=== PATIENT | female | born 1965 | race Caucasian/White ===

== ENCOUNTER 2022-01-01 16:45 | Emergency (ER) | payer OTHER ==
[2022-01-01 17:05] VITALS: BP 114/78; PULSE 68; TEMP 98.2; BMI 20.7
[2022-01-01] MEDS ORDERED: SODIUM CHLORIDE 0.9% 500 ML INFUS.BAG IV ONE (18:16)
[2022-01-01] MEDS ORDERED: ACETAMINOPHEN 1000 MG/100 ML BAG IVPB ONE (18:17)
[2022-01-01] MEDS ORDERED: METOCLOPRAMIDE HCL INJECTION 10 MG/2 ML VIAL IVPUSH ONE (18:18)
[2022-01-01] MEDS ORDERED: FAMOTIDINE 20 MG TABLET PO ONE (18:18)
[2022-01-01] MEDS ORDERED: ACETAMINOPHEN INJECTION 100 ML IVPB ONE (18:31)
[2022-01-01] MEDS ORDERED: METOCLOPRAMIDE HCL INJECTION 10 MG/2 ML VIAL ONE (18:31)
[2022-01-01] MEDS ORDERED: FAMOTIDINE 20 MG/50 ML IVPB 20 MG/50 ML MG IVPB ONE (18:32)
[2022-01-01] MEDS ORDERED: LIDOCAINE 5% TOPICAL PATCH TP ONE (18:35)
[2022-01-01] MEDS ORDERED: LIDOCAINE 5% TOPICAL PATCH ONE (18:52)
[2022-01-01] MEDS ORDERED: LIDOCAINE PATCH REMOVAL MC SCH (22:00)
== END 2022-01-01 21:59 | disposition home or self-care (01) ==
LOC: JER 16:45
PROC: 3E033GC Introduction of Other Therapeutic Substance into Peripheral Vein, Percutaneous Approach (ICD-10-PCS; principal; 2022-01-01)
DX: R51.9 Headache, unspecified (principal); M62.838 Other muscle spasm; J34.89 Other specified disorders of nose and nasal sinuses
CPT/HCPCS: 70450-TC; 99285-25